=== PATIENT | male | born 1960 | race Caucasian/White ===

== ENCOUNTER 2018-03-02 14:16 | Emergency (ER) | payer BC ==
--- NOTE | 2018-03-02 14:34 | EDPHY ---
H & P Time Seen by Provider: 03/02/18 14:24 HPI/ROS: CHIEF COMPLAINT: Right leg pain HISTORY OF PRESENT ILLNESS: Patient is a history of a chronic right shoulder problem for which she is getting physical therapy. He got dry needled last week and then the next day felt like his right hip and leg were really hurting. Over the last week it has gotten worse and now he has severe pain radiating from his right hip down his right thigh toward his knee. His orthopedic surgeon cm because he does not have a patellar reflex. This is not associated with weakness or numbness in the right foot or fever or chills or incontinence. Symptoms moderate to severe. A little bit better with ibuprofen which she last took this morning. REVIEW OF SYSTEMS: Eye: no change in vision ENT: no sore throat Cardiac: no chest pain or syncope Pulmonary: no cough or SOB Abdomen: no vomiting, diarrhea, abdominal pain Musculoskeletal: HPI Skin: no rash Neuro: HPI Constitutional: no fever : no urinary symptoms A comprehensive 10 point review of systems is otherwise negative aside from elements mentioned in the history of present illness. PAST MEDICAL HISTORY: As in HPI also includes bilateral shoulder surgery, left knee surgery, hypertension Social history: Nonsmoker, no drugs General Appearance: Alert and conversant, cooperative. Eyes: No scleral icterus. ENT, Mouth: Normal mucous membranes. Respiratory: Normal respiratory effort, breath sounds equal, lungs are clear to auscultation. Cardiovascular: Regular rate and rhythm. Normal 2+ dorsalis pedis pulse on the right foot. Gastrointestinal: Abdomen is soft and non tender. No pulsatile mass. Neurological: Alert, face symmetric, normal motor and sensory in extremities. No clonus. Toes downgoing bilaterally. Patellar reflex on the left is 2+ and 1 + on the right, ankle reflexes 1+ bilaterally. Skin: Warm and dry, no rashes. No zoster. No redness. Musculoskeletal: Compartments are soft in the right thigh and calf. No pain in the hip with rotation or axial loading on the right. Psychiatric: Not agitated. Emergency Department course/MDM: Oral ibuprofen, oral sedation for MRI, lumbar spine MRI without contrast. Performed for back and leg pain with decreased reflex on the right. 1623: discussed with Shanna, for consultation. 1645: Seen by Neurosurgery in person by Pamela, recommendation of strategy consultant including Dr. Cardoza is discharged on steroids, pain medication, muscle relaxants, neurosurgery clinic follow-up next week. Patient had Medrol Dosepak written for him by Dr. Mitchell orthopedist. Oral Percocet and Robaxin written by myself at Neurosurgery request. I do not think he has fracture or compartment syndrome or arterial or venous vascular problem. Smoking Status: Never smoked Constitutional: Initial Vital Signs Temperature (C) 36.7 C 03/02/18 14:20 Heart Rate 92 03/02/18 14:20 Respiratory Rate 16 03/02/18 14:20 Blood Pressure 162/118 H 03/02/18 14:20 O2 Sat (%) 97 03/02/18 14:20 O2 Delivery Mode Room Air Allergies/Adverse Reactions: No Known Allergies Allergy (Unverified 03/02/18 14:20) Home Medications: Medication Instructions Recorded Lisinopril 03/02/18 Methocarbamol [Robaxin 750 mg (*)] 750 mg PO QID #11 tab 03/02/18 oxyCODONE/APAP 5/325 [Percocet] 1 - 2 tab PO Q4-6PRN PRN #13 tab 03/02/18 Medical Decision Making - Diagnostics Imaging Results: Imaging Impressions Lumbar Spine MRI 03/02/18 14:40 Impression: 1. Mild disk bulge at L4-L5 with associated [id number] spinal stenosis as well as bulge/protrusion toward the right posterior laterally contributing to moderate right-sided neuroforaminal stenosis as well as compression upon the L4 nerve root peripheral to the neuroforamen. 2. Mild disk bulge at L3-L4 without significant consequences. Findings discussed with Ramon Betancourt M.D. at 16:15 hour, 03/02/2018. Imaging: Discussed imaging studies w/ offshore wind operations manager Radiologist Differential Diagnosis: Differential considered including but not limited to fracture, compartment syndrome, shingles, herniated disc, sciatica, nerve root compression - Data Points Medications Given: Discontinued Medications Hydrocodone Bitart/Acetaminophen (Delmar 5/325) 2 tab PO EDNOW ONE Stop: 03/02/18 16:56 Last Admin: 03/02/18 17:01 Dose: 2 tab Dexamethasone (Decadron) 8 mg PO EDNOW ONE Stop: 03/02/18 16:56 Last Admin: 03/02/18 17:00 Dose: 8 mg Diazepam (Valium) 5 mg PO EDNOW ONE Stop: 03/02/18 15:20 Last Admin: 03/02/18 15:20 Dose: 5 mg Ibuprofen (Motrin) 600 mg PO EDNOW ONE Stop: 03/02/18 14:40 Last Admin: 03/02/18 14:44 Dose: 600 mg Departure - Departure Disposition: Home, Routine, Self-Care Clinical Impression: spinal disc bulge Condition: Good Instructions: Acute Low Back Pain (ED) Additional Instructions: Return immediately for weakness or numbness in your foot or leg or any incontinence. Referrals: Kitty Burgos DO [Doctor of Osteopathy] - 03/05/18 1:00 pm (Call this number on Monday to confirm what office you will see Dr. Burgos at at 1 :00 p.m..) Prescriptions: Methocarbamol [Robaxin 750 mg (*)] 750 mg PO QID #11 tab oxyCODONE/APAP 5/325 [Percocet] 1 - 2 tab PO Q4-6PRN PRN #13 tab PRN Reason: Pain
[2018-03-02] MEDS ORDERED: IBUPROFEN 600 MG TAB PO ONE (14:39)
[2018-03-02] MEDS ORDERED: DIAZEPAM 5 MG TAB PO ONE (15:19)
[2018-03-02 16:06] VITALS: BP 143/109
[2018-03-02] MEDS ORDERED: HYDROCODONE/APAP 5/325 TAB PO ONE (16:55)
[2018-03-02] MEDS ORDERED: DEXAMETHASONE 4 MG TAB PO ONE (16:55)
--- NOTE | 2018-03-02 18:44 | GCON ---
NEUROSURGICAL CONSULTATION DATE OF CONSULTATION: 03/02/2018 CHIEF COMPLAINT: Right lower extremity pain. This patient is a pleasant 57-year-old male who states that 8 days ago, he was receiving physical the rapy for his right shoulder pain and was getting some adjustments and treatment to his lower back as well and developed, shortly after that, right hip and right lateral thigh pain when he was driving ho me from his physical therapy appointment. The patient states that for the past several days, he has been trying to manage the pain conservatively with ibuprofen and activity modification with little donaldson ccess. He was seen earlier today by his orthopedic surgeon, Dr. Mitchell, for his shoulder pain and mentioned his significant right thigh pain and was subsequently sent to the ED by Dr. Mitchell, who also called in an oral steroid Medrol Dosepak for him. Currently, the patient is being seen in the ED with complaints of right lateral thigh pain that does not extend past the knee. He denies any bow el or bladder changes, but does note that he has some muscular tremors in his right lateral thigh. H ab does not have any weakness in his legs or feet. Ibuprofen has not been effective in managing his p ain. ALLERGIES: No known drug allergies. CURRENT MEDICATIONS: 1. Lisinopril 20 mg. 2. Multivitamin. 3. Fish oil. REVIEW OF SYSTEMS: Significant for right leg pain, right shoulder pain. Otherwise negative. SOCIAL HISTORY: The patient is . He does not drink. He does not smoke. PAST SURGERY HISTORY: Bilateral shoulder surgeries with 2 surgeries on the right and 1 surgery on th e left and a left knee surgery. PAST MEDICAL HISTORY: Hypertension. PHYSICAL EXAM: GENERAL: Pleasant, healthy-appearing 57-year-old male, in moderate discomfort. HEEN T: Head, ears, nose, throat within normal limits. EXTREMITIES: Within normal limits. NEUROLOGIC: Patient is awake, alert, and oriented x4. Cranial nerves 2-12 are intact to gross examination. Spe ech is fluent. Tongue is midline. Spinal accessory muscles are intact. He has equal and symmetric strength in the bilateral upper and lower extremities in all muscle groups and normal sensation in al l dermatomal distributions of the bilateral upper and lower extremities. He is able to heel and toe stand. However, this is painful. He has a positive straight leg-raise test on the right. He has 2/ 4 reflexes at bilateral biceps and brachioradialis with negative Hien sign and 2/4 left patellar tendon reflex and a 1/4 right patellar tendon reflex. DATA REVIEW: MRI of the lumbar spine demonstrates a mild disk bulge at the L4-5 level with associate d mild to moderate spinal stenosis as well as a bulge/protrusion toward the right posterior laterally contributing to moderate right-sided neural foraminal stenosis as well as compression upon the L4 ne rve root peripheral to the neural foramen. Mild disk bulge is noted at L3-4 as well without signific ant stenosis. Of note, there is also an incidental probable left renal cyst. I did discuss with the patient that h e should follow up this finding with his primary care physician for further evaluation. IMPRESSION: This is a 57-year-old male with 8 days of gradually worsening right lateral thigh pain t hat does not extend past the knee and is not associated with weakness, tingling, or bowel or bladder changes. His pain is likely related to his right-sided L4-5 disk bulge and lateral recess and neural foraminal stenosis. He is neurologically intact. PLAN: All above issues were discussed with the patient in detail as well as with Dr. Ramon Betancourt in [facility] ER, and with Dr. Hernadez. At this time, we do recommend the patient be given 10 of Decadron and oral or IV pain medications to help manage his current 9/10 pain. The patient was also instructe d to start his Medrol Dosepak tonight, that he was provided by his orthopedic surgeon. The patient w ill be provided with oral pain medications and muscle relaxers upon discharge from the ED by Dr. Betancourt . At this time, we do feel the patient is able to go home with adequate pain control. We have sched uled the patient for a followup visit with Dr. Kitty Burgos at 1 p.m. next Monday, in 3 days, for fur ther treatment evaluation and evaluation. The patient was provided with Dr. Burgos's contact inform [facility]. /[id number]/MODL
== END 2018-03-02 17:02 | disposition home or self-care (01) ==
DX: M51.16 Intervertebral disc disorders with radiculopathy, lumbar region (principal); M48.061 Spinal stenosis, lumbar region without neurogenic claudication; N28.1 Cyst of kidney, acquired